=== PATIENT | female | born 1975 | race Caucasian/White ===

== ENCOUNTER 2017-01-14 22:55 | Inpatient (IN) | payer OTHER ==
--- NOTE | ~2017-01-14 | PN ---
Unit #: [id number] #: [id number] Patient: YOCASTA NAVAS [id number] [facility] [address] [place] [address] [id number] MR#: [id number] NAME: YOCASTA NAVAS ROOM: P121 Age: 41 Sex: F Admission Date: 01/14/2017 : 1975 Attending Physician: Corky Hennessy M.D. Admitting Physician: Corky Hennessy M.D. Primary Care Physician: Primary Care Physician Sharlene EVANS PROGRESS NOTES DATE OF SERVICE: 01/17/2017 SUBJECTIVE Ms. Navas is a 41-year-old white female who was seen today and chart was reviewed, and case was discussed the staff. She has been anxious, withdrawn, depressed, and seclusive to herself with blunted affect . Meanwhile, she has been taking medications and tolerating them fairly with no reported side effects. MENTAL STATUS EXAMINATION Middle-aged white female, who was casually dressed with fair personal hygiene, appears to be in no acute distress or discomfort. She was awake and alert on interaction with intact orientation. Her was anxious and depressed with a congruent affect. She denies any suicidal or homicidal ideations, and also denies any auditory or visual hallucinations. Her insight and judgment remain slightly impaired. TREATMENT PLAN 1. We will continue on her current medications and treatment protocol. We will monitor her response and make further adjustment. 2. We will continue to follow up. Dictated by... Love Bang/damon TD: 01/17/2017 17:33 JOB #: [id number] [facility] PROGRESS NOTES X Corky Hennessy MD PROGRESS NOTE
--- NOTE | ~2017-01-14 | PN ---
Unit #: [id number] #: [id number] Patient: YOCASTA NAVAS [id number] [facility] [address] [place] [address] [id number] I MR#: [id number] NAME: YOCASTA NAVAS ROOM: P121 Age: 41 Sex: F Admission Date: 01/14/2017 : 1975 Attending Physician: Corky Hennessy M.D. Admitting Physician: Corky Hennessy M.D. Primary Care Physician: Primary Care Physician Sharlene VILLARREAL NOTES DATE 01/19/2017 DISCUSSION Ms. Navas is a 41-year-old white female who was seen today and chart was reviewed and case was discussed with the staff. She has been anxious, withdrawn though has not shown any agitation, irritability or behavioral problems and been cooperative with treatment recommendations and has been taking the medications and tolerating them fairly well with no reported side effects. MENTAL STATUS EXAMINATION Middle-aged white female who was casually dressed with fair personal hygiene, appears to be in no acute distress or discomfort. She was awake and alert on interaction with intact orientation. Her mood was anxious with congruent affect. She denies any suicidal or homicidal ideations. Her insight and judgement remains slightly impaired. TREATMENT PLAN 1. We will continue her on her current treatment protocol. We will monitor her response and make further adjustments as needed. 2. We will continue to follow up. Dictated by... Love Bang/vijay TD: 01/21/2017 03:21 JOB #: [id number] Unit #: [id number] #: [id number] Patient: YOCASTA NAVAS TANIASUKUMAR PROGRESS NOTES X Corky Hennessy MD PROGRESS NOTE
--- NOTE | ~2017-01-14 | PN ---
Unit #: [id number] #: [id number] Patient: YOCASTA NAVAS [id number] [facility] [address] [place] [address] [id number] MR#: [id number] NAME: YOCASTA NAVAS ROOM: P121 Age: 41 Sex: F Admission Date: 01/14/2017 : 1975 Attending Physician: Corky Hennessy M.D. Admitting Physician: Corky Hennessy M.D. Primary Care Physician: Primary Care Physician Sharlene EVANS PROGRESS NOTES DATE OF SERVICE: 01/20/2017 SUBJECTIVE Ms. Navas is a 41-year-old white female who was seen today and chart was reviewed, and case was discussed the staff. She has been anxious, withdrawn, and rather seclusive to herself. Meanwhile, she has been cooperative with treatment recommendations, and has been taking medications and tolerating them fairly well with no reported side effects. MENTAL STATUS EXAMINATION Middle-aged white female who was casually dressed with fair personal hygiene, appears to be in no acute distress or discomfort. She was awake and alert on interaction with intact orientation. Her mood was anxious and depressed with a congruent affect. She denies any suicidal or homicidal ideations, and also denies any auditory or visual hallucinations. Her insight and judgment remain slightly impaired. TREATMENT PLAN 1. We will continue her on her current medications and treatment protocol. We will monitor her response and make further adjustments as needed. 2. We will continue to follow up. Dictated by... Love Bang/damon TD: 01/21/2017 02:14 JOB #: [id number] [facility] PROGRESS NOTES X Corky Hennessy MD PROGRESS NOTE
--- NOTE | ~2017-01-14 | DS ---
Unit #: [id number] #: [id number] Patient: YOCASTA NAVAS [id number] [facility] [address] [place] [address] [id number] I MR#: [id number] NAME: YOCASTA NAVAS ROOM: [facility] Age: 41 Sex: F Admission Date: 01/14/2017 : 1975 Discharge Date: 01/21/2017 Attending Physician: Corky Hennessy M.D. Primary Care Physician: Primary Care Physician No DISCHARGE SUMMARY IDENTIFYING DATA Ms. Navas is a 41-year-old white female who is a resident of [place], [place] and was transferred to us from the [facility]. DISCHARGE DIAGNOSES Psychiatric: Major depressive disorder, recurrent, moderate, with psychosis. Medical: Arthritis, degenerative disk disease. Stressors: Moderate psychosocial stressors. HISTORY OF PRESENT ILLNESS Please see initial psychiatric evaluation for details. PAST PSYCHIATRIC HISTORY Please see initial psychiatric evaluation for details. PAST MEDICAL HISTORY Please see initial psychiatric evaluation for details. HOSPITAL COURSE The patient was admitted to the adult psychiatric unit at [facility] and was oriented to the hospital environment. Routine p.r.n. medications were initiated, and she was started back on her home medications and medications were adjusted and she was closely monitored. She was taking medications regularly and was tolerating them fairly well and was able to show a decent therapeutic response with improvement in depression and anxiety and was willing to continue treatment on an outpatient basis and as such, it was decided that she will be discharged home and will continue treatment on an outpatient basis. DISCHARGE MEDICATIONS Risperdal 1 mg b.i.d. for psychosis, Cymbalta 90 mg in the morning for depression, and Vistaril 50 mg t.i.d. for anxiety. DISCHARGE CONDITION Stable. PROGNOSIS Fair. Dictated by... Corky Hennessy M.D. Unit #: [id number] #: [id number] Patient: YOCASTA NAVAS IAA/modl TD: 01/21/2017 22:28 JOB #: [id number] DISCHARGE SUMMARY X Corky Hennessy MD X DISCHARGE SUMMARY
--- NOTE | ~2017-01-14 | HP ---
Unit #: [id number] #: [id number] Patient: JAEL NAVAS [id number] [place] [address] [id number] I MR#: [id number] NAME: JAEL NAVAS ROOM: P121 Age: 41 Sex: F Admission Date: 01/14/2017 : 1975 Attending Physician: Corky Hennessy M.D. Admitting Physician: Corky Hennessy M.D. Primary Care Physician: Primary Care Physician No HISTORY AND PHYSICAL HISTORY OF PRESENT ILLNESS Jael is a 41 year old admitted to [address] [place] [address] with depression and verbalizing wanting to hurt herself. PAST MEDICAL HISTORY 1. Obesity 2. Degenerative disc disease PAST SURGICAL HISTORY Nothing reported. ALLERGIES Penicillin, sulfa, azithromycin, Lamictal. SOCIAL HISTORY She denies cigarettes, alcohol and illicit drug use. FAMILY HISTORY Medically noncontributory. REVIEW OF SYSTEMS CONSTITUTIONAL: No fever or chills. HEENT: Denies any sore throat, ear pain or runny nose. CARDIOVASCULAR: Denies chest pain, irregular heart rhythm or palpitations. CHEST: Denies shortness of breath or cough. No hemoptysis. GASTROINTESTINAL: Denies nausea, vomiting, diarrhea or chronic constipation. ENDOCRINE: Denies history of increased thirst or urination. No recent significant weight loss or gain. GENITOURINARY: Denies dysuria, frequency, or hematuria. SKIN: She does report a wet rash under both of her breasts. HEMATOLOGIC: Denies history of increased bleeding or bruising. MUSCULOSKELETAL: Denies any hot, swollen joints. No generalized muscle pain. NEUROLOGIC: Denies problems with vision or speech. No frequent, severe headaches. No numbness, tingling or weakness in any extremities. Denies loss of bladder or bowel control. CURRENT MEDICATIONS 1. Lyrica 150 mg b.i.d. 2. Lodine 400 mg b.i.d. 3. Risperdal 1 mg b.i.d. 4. Mobic 15 mg daily 5. Cymbalta 30 mg daily Unit #: [id number] #: [id number] Patient: JAEL NAVAS 6. Cogentin 1 mg b.i.d. 7. Methocarbamol 500 mg t.i.d. 8. Parafon Forte p.r.n. 9. Lortab p.r.n. 10. Vistaril p.r.n. 11. Milk of Magnesia p.r.n. 12. Maalox p.r.n. 13. Tylenol p.r.n. PHYSICAL EXAMINATION GENERAL: Alert, morbidly obese, in no apparent distress. VITAL SIGNS: Blood pressure 122/80, heart rate 100, respirations 16, temperature 98.6. WEIGHT: 214 pounds. HEIGHT: 5'11". SKIN: Warm and dry. She does have a wet red rash under both of her breasts. There is some odor noted. HEENT: Normocephalic. TMs not viewed. Oral and nasal passages clear. Conjunctivae clear. Pupils equal, round and reactive to light and accommodation. Extraocular movements intact. NECK: Supple without lymphadenopathy or thyromegaly. HEART: Regular rate and rhythm without murmur. LUNGS: Clear. ABDOMEN: Soft, nontender. : Not done. EXTREMITIES: No evidence of cyanosis, clubbing or edema. Moves all extremities without focal deficit. NEUROLOGICAL: Grossly within normal limits. Cranial Nerves: II: Visual cowart are intact. III, IV AND : Extraocular movements are intact. Pupils are equal, round and reactive to light. V: Facial sensation is grossly normal. VII: Facial movements and expression are normal. VIII: Auditory acuity grossly intact. IX, X: Uvula is midline. Phonation is normal. XI: Patient shrugs shoulders and turns head normally. XII: Tongue protrudes in the midline. Sensory and Motor Function: Sensory and motor sensation is grossly normal. Motor: moves all extremities well. Coordination: Gait is normal. Deep Tendon Reflexes: Intact. IMPRESSION 1. Psychiatric admission. 2. Yeast. RECOMMENDATIONS PSYCHIATRIC: Per psychiatrist. MEDICAL: 1. I see no contraindications to participating in facility's activities. 2. Nystatin powder. 3. Would discontinue either Lodine or Mobic and either Parafon Forte or methocarbamol. MEDICAL PROGNOSIS Good. MEDICAL CONDITION Stable. Unit #: [id number] #: [id number] Patient: JAEL NAVAS Dictated by... Gia Moore P.A.-C. for Love Lomas/vijay WAGNER: 01/16/2017 21:45 TD: 01/16/2017 21:56 JOB #: [id number] HISTORY AND PHYSICAL X Gia Moore HISTORY AND PHYSICAL
--- NOTE | ~2017-01-14 | PN ---
Unit #: [id number] #: [id number] Patient: YOCASTA NAVAS [id number] [facility] [address] [place] [address] [id number] I MR#: [id number] NAME: YOCASTA NAVAS ROOM: P121 Age: 41 Sex: F Admission Date: 01/14/2017 : 1975 Attending Physician: Corky Hennessy M.D. Admitting Physician: Corky Hennessy M.D. Primary Care Physician: Primary Care Physician Sharlene EVANS PROGRESS NOTES DATE January 18, 2017 DISCUSSION Ms. Navas is a 41-year-old white female, who was seen today and chart was reviewed and the case was discussed with the staff. She has been anxious, withdrawn, but has not shown any agitation or irritability, or behavioral problems and has been cooperative with the treatment recommendations though has been complaining of persistent anxiety and wants her medication to be adjusted. MENTAL STATUS EXAMINATION Middle-aged white female, who was casually dressed with fair personal hygiene, and appears to be in no acute distress or discomfort. She was awake and alert on interaction with intact orientation. Her mood was anxious with a congruent affect. Her speech is slow and goal-directed. The patient denies any suicidal or homicidal ideations. Her insight and judgment remain significantly impaired. TREATMENT PLAN 1. We will continue her on her current medications and treatment protocol, and will monitor her response, and make further adjustments as needed. 2. We will continue to followup. Dictated by... Love Bang/kana TD: 01/20/2017 12:49 JOB #: [id number] Unit #: [id number] #: [id number] Patient: YOCASTA NAVAS TANIASUKUMAR PROGRESS NOTES X Corky Hennessy MD X PROGRESS NOTE
--- NOTE | ~2017-01-14 | PN ---
Unit #: [id number] #: [id number] Patient: YOCASTA NAVAS [id number] [facility] [address] [place] [address] [id number] I MR#: [id number] NAME: YOCASTA NAVAS ROOM: P121 Age: 41 Sex: F Admission Date: 01/14/2017 : 1975 Attending Physician: Corky Hennessy M.D. Admitting Physician: Corky Hennessy M.D. Primary Care Physician: Primary Care Physician Sharlene EVANS PROGRESS NOTES DATE 01/16/2017 DISCUSSION Ms. Navas is a 41-year-old white female who was seen today and chart was reviewed and case was discussed with the staff. She has been anxious, withdrawn and rather seclusive to herself. Meanwhile, she has been cooperative with treatment recommendations as she has been taking the medications and tolerating them fairly well with no reported side effects. MENTAL STATUS EXAMINATION Middle-aged white female who was casually dressed with fair personal hygiene, appears to be in no acute distress or discomfort. She was awake and alert on interaction with intact orientation. Her mood was anxious and depressed with congruent affect. Her speech was slow and goal-directed. She denies any suicidal or homicidal ideations. Her insight and judgement remains significantly impaired. TREATMENT PLAN 1. We will continue her on her current medications and treatment protocol. We will monitor her response to the medication and make further adjustments as needed. 2. We will continue to follow up. Dictated by... Love Bang/vijay TD: 01/17/2017 00:49 JOB #: [id number] Unit #: [id number] #: [id number] Patient: YOCASTA NAVAS TANIASUKUMAR PROGRESS NOTES X Corky Hennessy MD PROGRESS NOTE
--- NOTE | ~2017-01-14 | PA ---
Unit #: [id number] #: [id number] Patient: YOCASTA NAVAS [id number] [facility] [address] [place] [address] [id number] I MR#: [id number] NAME: YOCASTA NAVAS ROOM: P121 Age: 41 Sex: F Admission Date: 01/14/2017 : 1975 Date of Assessment: Attending Physician: Corky Hennessy M.D. Admitting Physician: Corky Hennessy M.D. Primary Care Physician: Primary Care Physician No PSYCHIATRIC ASSESSMENT DATE OF SERVICE 01/15/2017. IDENTIFYING DATA Ms. Navas is a 41-year-old white female, who is a resident of [place], [place], and was transferred and referred to us from the [facility]. CHIEF COMPLAINT "Suicidal ideations." HISTORY OF PRESENT ILLNESS Ms. Navas is a 41-year-old white female, who was initially assessed by the [facility] with suicidal ideation and the patient was exhibiting some significant psychosis and reported having suicidal ideation with a plan to overdose on muscle relaxers and also reported active auditory and visual hallucinations and reports history of disorders with current pain and reports auditory hallucinations, suicidal ideations, paranoia, anxiety, and has been having suicidal ideations for the last couple of days and has been having thoughts and plan of overdosing on her muscle relaxers. She reports that she is homeless due to her roommate making meth and telling her to steal from the store and the patient called and reported suicidal ideations and reported a plan to overdose and also reported some auditory hallucination and was seen to be acutely psychotic with bizarre behavior, looseness of association, and persistent depressive symptoms and as such, was seen to be a danger to self and others and therefore recommendation for inpatient level of care was made. SUBSTANCE ABUSE HISTORY The patient reports history of experimentation with Xanax, but then she has been prescribed quite a few other medications including hydrocodone and Xanax as well. PAST PSYCHIATRIC HISTORY The patient has had a history of inpatient psychiatric hospitalization at the [facility] and has been diagnosed and treated for mood disorder and currently does appear to be exhibiting some acute psychosis. PAST MEDICAL HISTORY Significant for degenerative disk disease, bone spurs, and arthritis. ALLERGIES Penicillin, sulfa, azithromycin, and Lamictal. Unit #: [id number] #: [id number] Patient: YOCASTA NAVAS PERSONAL AND SOCIAL HISTORY A 41-year-old white female, who reports that she is single, unemployed, and essentially homeless and has poor social support system. MENTAL STATUS EXAMINATION Middle-aged white female, who was casually dressed with fair personal hygiene, appears to be in no acute distress or discomfort. She was awake and alert on interaction with impaired attention and concentration. Her mood was anxious and depressed with a congruent affect. Her speech was slow and restricted in content. Her thought processes were disorganized with some looseness of associations, thought blocking, paranoid ideations, and suicidal ideations as well as auditory hallucinations. Her insight and judgment remain significantly impaired. DIAGNOSTIC IMPRESSION Psychiatric: Major depressive disorder, recurrent, moderate, with psychosis. Medical: Arthritis and degenerative disk disease. Stressors: Moderate psychosocial stressors. TREATMENT PLAN 1. The patient has presented with a history of mood disorder and psychosis and has been decompensating and will need inpatient hospitalization for safety and stabilization. We will start her back on her home medications and we will adjust the medications and monitor response. 2. Supportive therapy was provided to the patient. 3. Safe, structured, and nourishing environment will be provided. ESTIMATED LENGTH OF STAY 5 to 7 days. ABILITY TO HELP SELF Limited. WILLINGNESS TO HELP SELF The patient appears to be willing to help self. STRENGTHS 1. Communicative. 2. Cooperative. PROBLEMS 1. Chronic dysphoric symptoms. 2. Poor social support system. DISCHARGE CRITERIA This will be contingent upon the patient's ability to show resolution of her depression and anxiety and her ability to stay safe to herself, particularly after discharge from the hospital. Dictated by... Love Bang/damon Unit #: [id number] #: [id number] Patient: YOCASTA NAVAS TD: 01/16/2017 12:30 JOB #: [id number] PSYCHIATRIC ASSESSMENT X Corky Hennessy MD PSYCHIATRIC ASSESSMENT
--- NOTE | ~2017-01-14 | CO ---
Unit #: [id number] #: [id number] Patient: JAEL NAVAS [id number] [place] [address] [id number] I MR#: [id number] NAME: JAEL NAVAS ROOM: [facility] Age: 41 Sex: F Admission Date: 01/14/2017 : 1975 Attending Physician: Corky Hennessy M.D. Primary Care Physician: Primary Care Physician No Consultation Date: 01/16/2017 CONSULTATION REPORT SUBJECTIVE Jael is a 41-year-old who had complained of rash under her breast. She was examined. Please see H and P dated 01/16/2017 for examination. We will start nystatin powder b.i.d. Dictated by... Gia Moore P.A.-C. for Love Lomas/damon TD: 01/17/2017 02:22 JOB #: [id number] CONSULTATION REPORT X Gia Moore CONSULTATION REPORT
== END 2017-01-21 13:25 | disposition home or self-care (01) | DRG 885 ==
LOC: P1S 22:55
DX: F33.1 Major depressive disorder, recurrent, moderate (principal); F20.0 Paranoid schizophrenia; M19.90 Unspecified osteoarthritis, unspecified site; F41.9 Anxiety disorder, unspecified; Z88.1 Allergy status to other antibiotic agents; Z88.0 Allergy status to penicillin; Z88.2 Allergy status to sulfonamides; Z88.8 Allergy status to other drugs, medicaments and biological substances